=== PATIENT | female | born 1950 | race Caucasian/White ===

== ENCOUNTER 2023-08-19 08:06 | Emergency (ER) | payer MEDICARE, SELFPAY ==
[2023-08-19 08:08] VITALS: BP 138/85
--- NOTE | 2023-08-19 09:02 | ED.GENMED ---
History of Present Illness
<Marzena Solis PA-C - Last Filed: 08/19/23 13:39>
General
Chief Complaint: Back Pain
Source: patient
Exam Limitations: none
Time Seen by Provider: 08/19/23 09:02
Nursing documentation reviewed up to this point in time: agreed with
Travel History
Have you had any contact with someone who has COVID-19?: No
Do you have any symptoms of coronavirus? Fever > 100 degrees, chills, cough, shortness of breath, sore throat, loss of taste or smell, muscle aches, or headache?: No
History of Present Illness
History of Present Illness:
This is a 73-year-old female with past medical history of hypertension, presenting to the emergency department today with lower back pain radiating to the top of the left hip for the past 4 days. Patient describes the pain as a sharpness. Patient
states as the week has gone on, the pain has progressed. Patient denies any trauma, any history of falls. Patient denies any nausea or vomiting, abdominal pain, fevers or chills, dysuria, hematuria. Patient denies any paresthesias, numbness.
Patient denies any numbness in the genital region, any loss of bowel or bladder. Patient does have a history of osteopenia. 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 Patient had pain similar to this before but it has
gone away on its own and this time it is not going away. Patient denies any allergies to any medications.
Past History
<Marzena Solis PA-C - Last Filed: 08/19/23 13:39>
Past History
ED Past Medical History: HTN
ED Past Surgical History: None
Social History
Alcohol: None
Personal:
Living: with family
Employment: Employed
Family History
Family History: Other (Noncontributory)
Review of Systems
<Marzena Solis PA-C - Last Filed: 08/19/23 13:39>
Review of Systems
All Other Systems: ROS reviewed and negative except as documented in HPI and ROS
Phy Exam
<Marzena Solis PA-C - Last Filed: 08/19/23 13:39>
Physical Exam
Physical Exam:
General: Patient is well appearing and in no acute distress; non-toxic
Skin: Warm and dry, no rashes or lesions
Head: Normocephalic, atraumatic
Eyes: Sclera non-icteric. EOMs intact.
Cardiac: Regular rate
Peripheral Vascular: No lower extremity edema, 2+ dorsalis pedis pulses bilaterally
Pulm: Normal respiratory effort
Abdomen: No abdominal tenderness. No CVA tenderness.
Musculoskeletal: No midline spinal tenderness. No palpable masses or deformities of the spine. No tenderness palpation of the paraspinal muscles. Positive left straight leg raise.
Neuro: CN II-XII intact, no focal neurologic deficits.
Psychiatric: Appropriate mood and affect.
Course
<Marzena Solis PA-C - Last Filed: 08/19/23 13:39>
Orders/Labs/Results
Orders:
Orders
08/19/23 08:34
Lumbar Spine Complete, 4 View [CR Lumbar Spine Comp Min 4 Vw*] Urgent
Comment:
Reason For Exam: pain
08/19/23 09:49
Urinalysis Reflex To Culture Urgent
Date Specimen was Collected: 08/19/23
Time Specimen was Collected: 09:45
Urine Microscopic Reflex Cult Urgent
Urine Culture Urgent
ROXIE Source: U
Specimen Description:
Date Specimen was Collected: 08/19/23
Time Specimen was Collected: 09:45
08/19/23 09:59
Oxycodone/Acetaminophen [Percocet 5/325] 1 tablet PO NOW STA
Abnormal Lab Results
08/19/23
09:49
Urine Ketones Trace A
(Negative)
Urine Bilirubin 1+ A
(Negative)
Leukocyte Esterase Rfl 2+ A
(Negative)
Urine Bacteria (Reflex) Few A
(Negative)
Vital Signs
Initial and Last Documented VS:
Initial Vital Signs
Temp Pulse Resp BP Pulse Ox
99.0 F 64 18 138/85 95
08/19/23 08:08 08/19/23 08:08 08/19/23 08:08 08/19/23 08:08 08/19/23 08:08
Last Documented Vital Signs
Temp Pulse Resp BP Pulse Ox
99.0 F 68 18 137/84 99
08/19/23 08:08 08/19/23 11:38 08/19/23 11:38 08/19/23 11:38 08/19/23 11:38
<Reinaldo Rivera, DO - Last Filed: 08/19/23 09:57>
Orders/Labs/Results
Orders:
Orders
08/19/23 08:34
Lumbar Spine Complete, 4 View [CR Lumbar Spine Comp Min 4 Vw*] Urgent
Comment:
Reason For Exam: pain
08/19/23 09:49
Urinalysis Reflex To Culture Urgent
Date Specimen was Collected: 08/19/23
Time Specimen was Collected: 09:45
Urine Microscopic Reflex Cult Urgent
Urine Culture Urgent
ROXIE Source: U
Specimen Description:
Date Specimen was Collected: 08/19/23
Time Specimen was Collected: 09:45
08/19/23 09:59
Oxycodone/Acetaminophen [Percocet 5/325] 1 tablet PO NOW STA
Abnormal Lab Results
08/19/23
09:49
Urine Ketones Trace A
(Negative)
Urine Bilirubin 1+ A
(Negative)
Leukocyte Esterase Rfl 2+ A
(Negative)
Urine Bacteria (Reflex) Few A
(Negative)
Vital Signs
Initial and Last Documented VS:
Initial Vital Signs
Temp Pulse Resp BP Pulse Ox
99.0 F 64 18 138/85 95
08/19/23 08:08 08/19/23 08:08 08/19/23 08:08 08/19/23 08:08 08/19/23 08:08
Last Documented Vital Signs
Temp Pulse Resp BP Pulse Ox
99.0 F 68 18 137/84 99
08/19/23 08:08 08/19/23 11:38 08/19/23 11:38 08/19/23 11:38 08/19/23 11:38
<ANGEL Sidhu Last Filed: 08/19/23 13:39>
MDM/Problems Addressed
Differential Diagnosis Includes:
Differentials include lumbar muscular sprain/strain, compression fracture, osteoarthritis, degenerative disc disease, nephrolithiasis, psoas muscle sprain/strain, herniated nucleus pulposus
MDM/Problems Addressed:
back pain
Chronic conditions affecting care:
high blood pressure, hyperlipidemia
Acute Exacerbation and/or Progression of Chronic Illness:
n/a
<ANGEL Sidhu Last Filed: 08/19/23 13:39>
*Pulse Oximetry
Patient hypoxic: no
*Critical Care Note
Total Time (30-74mins, 75-104mins- exclusive of procedures): Not Applicable
Data Reviewed
Review of Other/Old Records Reveals: Records (reviewed previous record from ER physician documentation on 05/20/2022) and Discharge Summary (no discharge summaries in [facility] to review)
Source: patient
<ANGEL Sidhu Last Filed: 08/19/23 13:39>
Patient Management
Escalation/DeEscalation of care consider admission/obs:
This is a 73-year-old female with past medical history of hypertension, presenting to the emergency department today with lower back pain radiating to the top of the left hip for the past 4 days. Denies days progressed, the pain has increased in
severity. Patient has no signs or symptoms concerning for a cauda equina syndrome. Patient had no inciting injury to this pain. Lumbar spine x-ray shows questionable L3-L4 disc space narrowing. No vertebral compression deformity. Urinalysis does
not show any evidence of infection, she does no hematuria. Highly doubt kidney stone at this time. Patient's pain has not been relieved with Tylenol or aspirin at home. Patient was given a Percocet here in emergency department which did not help
her pain at all. Considering pain sounds radicular in nature, will send patient home on Medrol Dosepak and have her follow-up with spinal pain specialist or orthopedist to ensure resolution of her symptoms and for further evaluation. Patient
agreement with plan. Patient medically stable for discharge.
ED Attending Note
<Marzena Solis PA-C - Last Filed: 08/19/23 13:39>
-
Portions of this chart may have been created with voice recognition software.� Occasional wrong word or��sound alike� substitutions may have occurred due to the inherent limitations of voice recognition software.
<Reinaldo Rivera DO - Last Filed: 08/19/23 09:57>
ED Attending Note
Patient seen and examined by attending physician: Yes
I performed the substantive portion of visit, reviewed & personally made and approve the management plan that is documented in note by myself or JENNYFER.: Yes
ED Attending Note:
SEEN WITH PA agree with assessment and plan
Nontoxic female painful straight leg raise on the left
Discharge Plan
Departure
Patient Disposition: Home (Routine Discharge)
Date of Disposition: 08/19/23
Time of Disposition: 10:56
Patient with high blood pressure during this ER visit?: Yes
Condition: Good
Discharge Problem:
Low back pain
Instructions: Low Back Pain (DC), Back Exercises, Radiculopathy (DC), BLOOD PRESSURE
Prescriptions:
New
methylprednisolone [Medrol (Rubens)] 4 mg tablets,dose pack
See Rx Instructions .ROUTE .COMPLEX Qty: 21 0RF
Rx Instructions:
for 6 days
Referrals:
Zafar Denise MD [Active] - Call in 1-3 days for appt
Shay Davis DO [Family Provider] -
Mayo Daniels MD [Active] - Call in 1-3 days for appt
Activity Restrictions/Additional Instructions:
PLEASE RETURN TO THE EMERGENCY DEPARTMENT SHOULD YOU EXPERIENCE FEVERS OR CHILLS, INABILITY TO AMBULATE, NUMBNESS OR TINGLING IN THE GENITAL REGION, URINARY INCONTINENCE, FECAL INCONTINENCE, LOSS OF CONSCIOUSNESS, CHEST PAIN, ABDOMINAL PAIN, OR ANY
OTHER CONCERNING SIGNS OR SYMPTOMS.
We have sent Medrol dose pack to your pharmacy. Please follow package instructions for dosing. Please take with food.
Please follow up with your primary care provider.
Should you symptoms not resolve, please call the attached number for orthopedic follow up for further evaluation.
Interventions
Interventions:
*Risk Screen - Suicide Last Done: 08/19/23 09:44
*General Assessment Last Done: 08/19/23 09:44
*Neglect/Abuse Screening Last Done: 08/19/23 09:44
ED- Fall Risk Assessment Last Done: 08/19/23 11:01
*ED COVID-19 Vaccine History Last Done: 08/19/23 08:08
*Nursing Disposition Last Done: 08/19/23 11:38
ED-Musculoskeletal Assessment Last Done: 08/19/23 09:44
Discharge Date and Time
Discharge Date/Time: 08/19/23 11:39
Print Language: NEPALI
[2023-08-19 10:03] LABS: Urine Albumin Trace (Neg - Trace); Urine Bilirubin 1+ (Negative); Urine Character Clear (Clear); Urine Color Yellow; Urine Glucose Negative (Negative); Urine Ketone Trace (Negative); Urine Leukocyte 2+ (Negative); Urine Nitrite Negative (Negative); Urine Occult Blood Negative (Negative); Urine Specific Gravity 1.025 (<1.030); Urine Urobilinogen Negative (Neg - 1+)
[2023-08-19] MEDS: PERCOCET 5/325 1 TABLET PO (10:09)
[2023-08-19 10:36] LABS: Urine Red Blood Cell 0-2 /HPF (0-2)
[2023-08-19 10:37] LABS: Urine Bacteria Few (Negative)
[2023-08-19 11:01] VITALS: BP 131/72
[2023-08-19 11:38] VITALS: BP 137/84
== END 2023-08-19 11:39 | disposition home or self-care (01) ==
LOC: EMR 08:06
PROVIDERS: Physician Assistant; EMERGENCY PHYSICIAN Emergency Medicine; FAMILY PHYSICIAN Internal Medicine
DX: M54.50 Low back pain, unspecified (principal); M25.552 Pain in left hip; I10 Essential (primary) hypertension; M85.80 Other specified disorders of bone density and structure, unspecified site; Z88.1 Allergy status to other antibiotic agents
CPT/HCPCS: 99283; 72110; 81003; 81015; 87086

== ENCOUNTER 2024-04-24 22:05 | Emergency (ER) | payer MEDICARE, SELFPAY ==
[2024-04-24 22:05] VITALS: BMI 32.3
[2024-04-24 22:09] VITALS: BP 159/105
[2024-04-24 22:28] LABS: % Basophils 0.5 % (0-2); % Eosinophils 1.9 % (0-6); % Immature Granulocytes 0.3 % (0-0.5); % Lymphocytes 18.1 % (20.5-51.1); % Monocytes 7.8 % (1.7-9.3); % Neutrophils 71.4 % (42.2-75.2); Absolute Basophils 0.1 10^3/uL (0-0.2); Absolute Eosinophils 0.2 10^3/uL (0-0.7); Absolute Lymphocytes 1.8 10^3/uL (1.2-3.4); Absolute Monocytes 0.8 10^3/uL (0.1-0.6); Hematocrit 36.9 % (37.0-47.0); Hemoglobin 12.4 g/dL (12.0-16.0); Mean Corp Hgb Conc. 33.6 g/dL (33.0-37.0); Mean Corpuscular Hgb 30.9 pg (27.0-31.0); Mean Platelet Volume 9.1 fL (7.4-10.4); Nucleated Red Blood Cells % 0 %; Platelet Count 285 10^3/uL (130-400); Red Blood Cell Count 4.01 10^6/uL (4.20-5.40); Red Cell Dist. Width 13.2 % (11.5-14.5); White Blood Cell Count 9.8 10^3/uL (4.8-10.8)
[2024-04-24 22:40] LABS: Lactic Acid 0.8 mmol/L (0.7-2.0)
[2024-04-24 22:45] LABS: ALT (SGPT) 23 U/L (0-35); AST (SGOT) 25 U/L (14-36); Albumin 4.6 g/dl (3.5-5.0); Alkaline Phosphatase 81 U/L (38-126); Blood Urea Nitrogen 24 mg/dl (7-17); Calcium 10.3 mg/dl (8.4-10.2); Carbon Dioxide 24 mmol/L (22-30); Chloride 103 mmol/L (98-107); Glucose 111 mg/dl (70-99); Potassium 4.3 mmol/L (3.5-5.1); Sodium 137 mmol/L (135-145); Total Bilirubin 0.5 mg/dl (0.2-1.3); Total Protein 7.2 g/dl (6.3-8.2); eGFR > 60.00
[2024-04-24 22:51] LABS: Troponin I < 0.012 ng/ml
[2024-04-25 00:30] VITALS: BP 156/71
--- NOTE | 2024-04-25 00:50 | ED.GENMED ---
History of Present Illness
General
Chief Complaint: Rectal Bleeding
Source: patient
Exam Limitations: none
Time Seen by Provider: 04/25/24 00:26
History of Present Illness
History of Present Illness:
This is a 73 year old female that comes in with c/o abd pain and bright red blood in her stool. State that she was sick last week with an upper respiratory thing. state that she was good on Monday. State that she went to work on Monday and about 3
hours into work she started with abd pain. States that she took Imodium right away as she thought she eat something that bothered her stomach. State that she then went to the [place] and had diarrhea. State that she broke out into a cold sweat and was
lightheaded and dizzy. State that she stood up and fell to the floor. states that this happened twice but she was able to catch herself and she did not hit her head. State that she had bright red blood with mucous mixed with stool. Denies any fever,
chills, chest pain, SOB, nausea, vomiting, headache, urinary burning.
Past History
Past History
ED Past Medical History: HTN; Negative Asthma, Hypercholesterolemia or NIDDM
ED Past Surgical History: Appendectomy and Other (cataracts)
Social History
Tobacco: Non-smoker
Alcohol: Occasional
Personal:
Living: with family
Employment: Employed
Family History
Family History: Other (Noncontributory)
Review of Systems
Review of Systems
All Other Systems: ROS reviewed and negative except as documented in HPI and ROS
Constitutional: Reports no symptoms; Denies fever or chills
EENT: Reports no symptoms
Respiratory: Reports no symptoms; Denies cough or trouble breathing
Cardiac: Reports no symptoms; Denies chest pain
ABD/GI: Reports abdominal pain, diarrhea and bloody stools; Denies nausea or vomiting
: Reports no symptoms; Denies dysuria, frequency or urgency
Musculoskeletal: Reports no symptoms
Skin: Reports no symptoms
Neurological: Reports dizzy; Denies headache
Psychiatric: Reports no symptoms
Phy Exam
General Physical Exam
General Presentation: well appearing and no apparent distress
General age: appears stated age
General Skin: warm and dry
General Habitus: elderly
General Mental: alert
General Hydration: dry mucous membranes
ENT Exam
ENT Exam: TM's normal, pharynx normal and neck supple
Eye Exam
Eye Exam: EOMI
Cardiovascular Exam
Cardiovascular Exam: regular rate/rhythm, no edema, no murmur and normal peripheral pulses
Pulmonary Exam
Pulmonary Exam: lungs clear, no respiratory distress, no rales, chest non tender, no crackles, no rhonchi, no wheezing and no cough
Gastrointestinal Exam
Gastrointestinal Exam: normal bowel sounds, non tender, soft, no organomegaly, no pulsatile mass and non distended
Musculoskeletal Exam
Musculoskeletal Exam: full ROM and no edema
Skin Exam
Skin Exam: normal color, warm/dry, no rash and no petechia
Psychiatric Exam
Psychiatric Exam: normal mood/affect
Course
Orders/Labs/Results
Orders:
Orders
04/24/24 22:13
Electrocardiogram (*1) Urgent
Reason for Study: Vertigo / Dizzy
EKG- Treatment ONCE
04/24/24 22:20
Type+Screen Urgent
Complete Blood Count/With Diff Urgent
Comprehensive Metabolic Panel Urgent
Lactic Acid Urgent
Troponin I Urgent
04/24/24 22:27
ABO2 Urgent
BBK Wristband Number:
Associate notified that ABO2 has been ordered: [id number]
Date: 04/24/24
Time: 22:27
Electroencephalograph Technician ID: [id number]
04/25/24 00:48
CT Abd/pelvis W Iv Cont Urgent
Comment:
Reason For Exam: Blood stool, abd pain,
0.9% Sodium Chloride 1000 ml [Nss] 1,000 ml IV BOLUS
Abnormal Lab Results
04/24/24
22:20
RBC 4.01 L 10^6/uL
(4.20-5.40)
Hct 36.9 L %
(37.0-47.0)
Absolute Neuts (auto) 7.0 H 10^3/uL
(1.4-6.5)
Absolute Monos (auto) 0.8 H 10^3/uL
(0.1-0.6)
Lymphocytes % 18.1 L %
(20.5-51.1)
BUN 24 H mg/dl
(7-17)
Glucose 111 H mg/dl
(70-99)
Calcium 10.3 H mg/dl
(8.4-10.2)
04/24/24 22:20
04/24/24 22:20
Dehydration. glucose nonfasting. Calcium very slightly elevated. Lactic acid normal at 0.8, Troponin <0.012
Vital Signs
Initial and Last Documented VS:
Initial Vital Signs
Temp Pulse Resp BP Pulse Ox
98.2 F 87 20 159/105 97
04/24/24 22:09 04/24/24 22:09 04/24/24 22:09 04/24/24 22:09 04/24/24 22:09
Last Documented Vital Signs
Temp Pulse Resp BP Pulse Ox
98.2 F 71 13 153/61 95
04/24/24 22:09 04/25/24 01:15 04/25/24 01:15 04/25/24 01:00 04/25/24 01:15
MDM/Problems Addressed
Differential Diagnosis Includes:
colitis
MDM/Problems Addressed:
This is a 73 year old female that comes in with c/o bloody stools. States that she started with diarrhea at work today and there was bright red blood. States that she broke out into a cold sweat and fell to the ground twice.
Will check labs and get CT scan. Will give IV fluids
Back into see patient. Explained that the CT shows that she has colitis. Will place patient on an antibiotic and have her increase her water intake to 8-8oz glasses daily. Follow up with the family doctor for recheck. Return with increased or
changing pain.
Chronic conditions affecting care:
NA
Acute Exacerbation and/or Progression of Chronic Illness:
NA
*Radiology
Radiology exam reviewed: radiology read reviewed (CT night hawk- Moderate size hiatal hernia containing the stomach. Normal gallbladder, kidneys, pancreas. Small bowel is decompressed. Wall thickening of the descending colon consistent with colitis,
mesenteric vessels are patent but this could represent ischemia in the inferior mesenteric artery) and other (CT cont- territory in a hypovolemic state versus other inflammatory or infectious etiologies. )
*Pulse Oximetry
Patient hypoxic: no
*EKG
Interpreted by ED Provider?: Yes
Heart Rate: 65
Rhythm: sinus
[place]: normal axis
Interval: normal interval
QRS Pattern: low voltage
Ischemia: no ischemia
*Silverlight Developer Interpretation
Rate: normal
Heart Rate: 71
Rhythm: sinus
*Critical Care Note
Total Time (30-74mins, 75-104mins- exclusive of procedures): Not Applicable
ED Attending Note
-
Portions of this chart may have been created with voice recognition software.� Occasional wrong word or��sound alike� substitutions may have occurred due to the inherent limitations of voice recognition software.
Discharge Plan
Departure
Patient Disposition: Home (Routine Discharge)
Date of Disposition: 04/25/24
Time of Disposition: 02:28
Patient with high blood pressure during this ER visit?: Yes
Condition: Good
Covid-19: Not Applicable
Discharge Problem:
Colitis
Instructions: Colitis - Discharge instructions, BLOOD PRESSURE
Prescriptions:
New
amoxicillin-pot clavulanate 875-125 mg tablet
1 tab PO BID Qty: 19 0RF
No Action
atorvastatin 10 mg Tablet
10 mg PO DAILY
enalapril maleate 20 mg Tablet
20 mg PO DAILY
amlodipine 5 mg Tablet
5 mg PO DAILY
famotidine [Pepcid] 20 mg Tablet
20 mg PO DAILY
Referrals:
Shay Davis DO [Family Provider] - Follow up in 5-7 days
Stand Alone Forms: Return to Work
Activity Restrictions/Additional Instructions:
As discussed, your blood work shows that you are a little Dehydrated. Please increase your water intake to 8-8oz glasses daily. Your CT scan shows that you have Colitis. You have been given your first dose of antibiotic here and a prescription has
been sent to your Pharmacy for the next 10 days. Please follow up with the family doctor for recheck. IF YOU HAVE INCREASED OR CHANGING PAIN, FEVER, OR YOU HAVE ANY OTHER CONCERNS PLEASE RETURN TO THE EMERGENCY ROOM.
Interventions
Interventions:
*Risk Screen - Suicide Last Done: 04/25/24 01:05
*General Assessment Last Done: 04/24/24 22:09
*Neglect/Abuse Screening Last Done: 04/25/24 01:05
[facility] Assessment Last Done: 04/25/24 01:01
ED- Cardiac Assessment Last Done: 04/25/24 01:01
ED- Pulmonary Assessment Last Done: 04/25/24 01:01
Discharge Date and Time
Print Language: CYMRAES
[2024-04-25] MEDS: NSS 1000 IV (00:57)
[2024-04-25 01:00] VITALS: BP 153/61
[2024-04-25] MEDS: AUGMENTIN 875 MG/125 MG 1 TABLET PO (02:38)
[2024-04-25 02:46] VITALS: BP 150/62
== END 2024-04-25 02:47 | disposition home or self-care (01) ==
LOC: EMR 22:05
PROVIDERS: EMERGENCY PHYSICIAN Emergency Medicine; FAMILY PHYSICIAN Internal Medicine
DX: K52.9 Noninfective gastroenteritis and colitis, unspecified (principal); I10 Essential (primary) hypertension
CPT/HCPCS: 99285; 96360; 74177; 80053; 83605; 84484; 85025; 86850; 86900; 86901; 93005; Q9967